=== PATIENT | female | born 1995 | race Two or more races ===

== ENCOUNTER 2024-04-21 13:16 | Emergency (ER) | payer MEDICAID, SELFPAY ==
[2024-04-21 13:47] VITALS: BP 101/65; PULSE 64; RESP 18; TEMP 37.2; O2SAT 98
--- NOTE | 2024-04-21 13:58 | PD.EDRME ---
Rapid Medical Screening Exam RME Arrival date/time: 04/21/24 13:16 28-year-old female presents emergency department complaint of lower abdominal pain and headache Chief Complaint: Headache Time Seen by Provider: 04/21/24 13:23 Vital signs: Vital Signs Temperature 98.9 F 04/21/24 13:47 Pulse Rate 64 04/21/24 13:47 Respiratory Rate 18 04/21/24 13:47 Blood Pressure 101/65 04/21/24 13:47 Pulse Oximetry (%) 98 04/21/24 13:47 Oxygen Delivery Method Room Air 04/21/24 13:47
[2024-04-21 14:12] LABS: Basophils % (Auto) 1 % (0-2.5); Eosinophils # (Auto) 0.3 Thou/mm3 (0.0-0.5); Eosinophils % (Auto) 5 % (0-10); Hematocrit 35.7 % (36.0-46.0); Hemoglobin 11.9 g/dL (12.0-16.0); Immature Granulocytes % (Auto) 0 % (0-0); Lymphocytes # (Auto) 2.1 Thou/mm3 (1.0-4.8); Lymphocytes % (Auto) 31 % (10-50); Mean Corpuscular HGB Conc 33.3 g/dl (31.0-37.0); Mean Corpuscular Hemoglobin 29.9 pg (25.0-35.0); Mean Corpuscular Volume 90 fL (80-100); Monocytes # (Auto) 0.7 Thou/mm3 (0.0-0.8); Monocytes % (Auto) 10 % (0-12); Neutrophils # (Auto) 3.6 Thou/mm3 (1.8-7.7); Neutrophils % (Auto) 54 % (37-80); Nucleated Red Blood Cell % 0 /100 WBC (0); Platelet Count 197 Thou/mm3 (140-440); RDW Standard Deviation 39.9 fL (36.4-46.3); Red Blood Count 3.98 Miln/mm3 (4.00-5.20); White Blood Count 6.6 Thou/mm3 (3.6-11.0)
[2024-04-21 14:35] LABS: Alanine Aminotransferase 13 U/L (10-49); Albumin, Serum 4.5 gm/dL (3.5-5.0); Albumin/Globulin Ratio 1.5 (1.2-2.2); Alkaline Phosphatase 68 U/L (46-116); Anion Gap 7 (7-16); Aspartate Amino Transferase 22 U/L (0-34); BUN/Creatinine Ratio 10 Ratio (12-20); Bilirubin,Total 0.7 mg/dL (0.3-1.2); Blood Urea Nitrogen 7 mg/dL (9-23); Calcium 9.6 mg/dL (8.3-10.6); Calcium (Corrected) 9.6 mg/dL (8.5-10.1); Carbon Dioxide 27.9 mMol/L (20.0-31.0); Chloride 103 mMol/L (98-107); Creatinine (Component) 0.7 mg/dL (0.6-1.3); Globulin 3.1 gm/dL (2.3-3.5); Glucose 81 mg/dL (74-106); Lipase 31 U/L (12-53); Osmolality,Calculated 272 (275-295); Potassium 3.6 mMol/L (3.4-5.1); Sodium 138 mMol/L (136-145); Total Protein 7.6 gm/dL (5.7-8.2); eGFR > 60 See Note
[2024-04-21 16:05] LABS: Collection Type, Urine Clean Catch
[2024-04-21 16:13] LABS: HCG Qualitative,Urine Negative
[2024-04-21 16:14] LABS: Bacteria,Urine Rare; Bilirubin,Urine Negative (Negative); Blood,Urine Negative (Negative); Color,Urine Lt-Yellow (Lt Yel-Yel); Culture Indicated,Urine Contaminated; Glucose, Urine Negative (Negative); Ketones,Urine Negative (Negative); Leukocyte Esterase,Urine Positive (Negative); Nitrite,Urine Negative (Negative); Protein,Urine Negative (Neg - Trace); RBC,Urine 3 /hpf (0-3); Specific Gravity,Urine 1.007 (1.001-1.035); Squamous Epithelial Cell,Urine 29 /hpf (0-5); Urobilinogen,Urine Negative mg/dL (0.0-1.0); WBC,Urine 75 /hpf (0-5)
--- NOTE | 2024-04-21 16:20 | EDNOTE_ITS ---
ED General RME/HPI General Chief complaint: Headache Stated complaint: ORTIZ, right side abdominal pain Time Seen by Provider: 04/21/24 13:23 Arrival date/time: 04/21/24 13:16 CC: Headache and abdominal pain HPI ongoing intermittent for the last month does not take any jfdk-tob-mhinnak medications that was referred from the [facility]. When asked if her head hurts in the back she said yes in the front yes, when asked about the chest she says there is no chest pain, but there is no back pain. During the interview the more I asked the more the patient said yes to her pain. The patient is stable vital signs is afebrile nontoxic-appearing and not in any acute distress. Patient did admitted to blurred vision seeing spots however the patient is tracking normally and responding to us with appropriate fashion. RME / HPI RME / HPI narrative: 04/21/24 13:16 28-year-old female presents emergency department complaint of lower abdominal pain and headache Related Data Allergies Allergy/AdvReac Type Severity Reaction Status Date / Time No Known Allergies Allergy Verified 04/21/24 13:22 Course Quality Measures none Orders Category Date Time Status CBC Stat Lab 04/21/24 13:58 Completed Comprehensive Metabolic Panel Stat Lab 04/21/24 13:58 Completed Drug Screen,Urine Stat Lab 04/21/24 15:47 Completed HCG Qualitative,Urine Stat Lab 04/21/24 15:47 Completed Lipase Stat Lab 04/21/24 13:58 Completed UA, C/S IF [Urinalysis, C/S if Indicated] Stat Lab 04/21/24 15:47 Completed Acetaminophen Tab [Tylenol Tab] Med 04/21/24 16:40 Discontinued 650 mg PO X1 ONE Vital Signs Vital signs: Vital Signs Temperature 98.9 F 04/21/24 13:47 Pulse Rate 64 04/21/24 13:47 Respiratory Rate 18 04/21/24 13:47 Blood Pressure 101/65 04/21/24 13:47 Pulse Oximetry (%) 98 04/21/24 13:47 Oxygen Delivery Method Room Air 04/21/24 13:47 [facility] Patient data External records reviewed:: [facility] previous records Clinical information provided by:: patient Social determinants that could affect healthcare access:: none Patient has the following chronic illnesses:: None How is presenting disease/condition affected by chronic disease/condition?: u neffected by Evaluation data The following diagnostics were reviewed and interpreted by me:: lab results Lab and/or radiology exams considered but not ordered:: CBC shows no acute leukocytosis anemia thrombocytopenia CMP shows no acute electrolyte imbalances renal impairment transaminitis or T. bili elevation Urine is negative UDS is negative. Interpretation Summary: Body aches presumable URI. Medications Medications considered but not ordered:: None Medication administrations:: Medication Administration History Discontinued Medications Acetaminophen (Acetaminophen 325 Mg Tablet) 650 mg PO X1 ONE Stop: 04/21/24 16:41 Last Admin: 04/21/24 16:54 Dose: 650 mg Documented By: ZULEIKA None Consultations Consultation(s) initiated? (list below): No Diagnosis Differential Diagnosis ED Complaint MDM: Body aches electrolyte imbalance UTI Most likely diagnosis given after review of the tests above:: Body aches Admission Indicated Admission indicated?: not indicated Explain why admission is indicated or not indicated:: Stable for discharge Admission Request Was there a request for admission?: No Disposition Plan Disposition Plan: Discharge Discharge Attestation Discharge Attestation: The patient and all family members were given an opportunity to ask questions and understood the discharge instructions. Discharge instructions specifically effects, indications for sooner follow up or return to the emergency department, and the expected course of current diagnosis. Patient condition: Stable Medical Decision Making Differential Diagnosis Differential Diagnosis: Body aches electrolyte imbalance UTI Lab Data 04/21/24 13:58 04/21/24 13:58 Labs: Lab Results 04/21/24 04/21/24 Range/Units 13:58 15:47 WBC 6.6 (3.6-11.0) Thou/mm3 RBC 3.98 L (4.00-5.20) Miln/mm3 Hgb 11.9 L (12.0-16.0) g/dL Hct 35.7 L (36.0-46.0) % MCV 90 (80-100) fL MCH 29.9 (25.0-35.0) pg MCHC 33.3 (31.0-37.0) g/dl RDW Std Deviation 39.9 (36.4-46.3) fL Plt Count 197 (140-440) Thou/mm3 Neut % (Auto) 54 (37-80) % Lymph % (Auto) 31 (10-50) % [place] % (Auto) 10 (0-12) % Eos % (Auto) 5 (0-10) % Baso % (Auto) 1 (0-2.5) % Neut # (Auto) 3.6 (1.8-7.7) Thou/mm3 Lymph # (Auto) 2.1 (1.0-4.8) Thou/mm3 [place] # (Auto) 0.7 (0.0-0.8) Thou/mm3 Eos # (Auto) 0.3 (0.0-0.5) Thou/mm3 Baso # (Auto) 0.0 (0.0-0.2) Thou/mm3 Immature Gran # (Auto) 0.00 (0.00-0.00) Thou/mm3 Absolute Nucleated RBC 0.00 (0.00-0.00) Thou/mm3 Immature Gran % 0 (0-0) % Nucleated RBC % 0 (0) /100 WBC Sodium 138 (136-145) mMol/L Potassium 3.6 (3.4-5.1) mMol/L Chloride 103 (98-107) mMol/L Carbon Dioxide 27.9 (20.0-31.0) mMol/L Anion Gap 7 (7-16) BUN 7 L (9-23) mg/dL Creatinine 0.7 (0.6-1.3) mg/dL Estim Creat Clear Calc Not Performed. eGFR > 60 (60 - ) See Note BUN/Creatinine Ratio 10 L (12-20) Ratio Glucose 81 (74-106) mg/dL Calculated Osmolality 272 L (275-295) Calcium 9.6 (8.3-10.6) mg/dL Corrected Calcium 9.6 (8.5-10.1) mg/dL Total Bilirubin 0.7 (0.3-1.2) mg/dL AST 22 (0-34) U/L ALT 13 (10-49) U/L Alkaline Phosphatase 68 (46-116) U/L Total Protein 7.6 (5.7-8.2) gm/dL Albumin 4.5 (3.5-5.0) gm/dL Globulin 3.1 (2.3-3.5) gm/dL Albumin/Globulin Ratio 1.5 (1.2-2.2) Lipase 31 (12-53) U/L Ur Collection Type Clean Catch Urine Color Lt-Yellow (Lt Yel-Yel) Urine Clarity Hazy (Clear/Hazy) Urine pH 6.0 (5.0-7.0) Ur Specific [place] 1.007 (1.001-1.035) Urine Protein Negative (Neg - Trace) Urine Glucose (UA) Negative (Negative) Urine Ketones Negative (Negative) Urine Blood Negative (Negative) Urine Nitrite Negative (Negative) Urine Bilirubin Negative (Negative) Urine Urobilinogen (Auto) Negative (0.0-1.0) mg/dL Ur Leukocyte Esterase Positive (Negative) Urine RBC 3 (0-3) /hpf Urine WBC 75 H (0-5) /hpf Ur Squamous Epith Cells 29 H (0-5) /hpf Urine Bacteria Rare (None) Ur Culture Indicated? Contaminated Urine HCG, Qual Negative Urine Opiates Screen Negative (Negative) Urine Fentanyl Screen Negative (Negative) Ur Barbiturates Screen Negative (Negative) U Amphetamin/Meth Scrn Negative (Negative) U Benzodiazepines Scrn Negative (Negative) U Cocaine Metab Screen Negative (Negative) U Marijuana (THC) Screen Negative (Negative) Discharge Plan Plan Patient Disposition: HOME (Self Care) Patient condition on transfer: Stable Prescriptions/Referrals Referrals: Jacob Rabago MD [Primary Care Provider] - In 1 week Problem List Clinical Impression: Headache, Body aches Patient/Caregiver Discharge Instructions Education Materials: Self-Care for Headaches Print Language: Faroese Stand Alone Forms: Na Award Info., Work/School Release, Patient Portal Info Letter PER/NEELAM Supervising Physician PA/NEELAM Supervising Physician: Osito Hull ENP
[2024-04-21 16:23] VITALS: BP 98/64; PULSE 60; RESP 18; O2SAT 100
[2024-04-21 16:29] LABS: Clarity,Urine Hazy (Clear/Hazy)
[2024-04-21 16:39] VITALS: TEMP 36.7
[2024-04-21 16:48] LABS: Amphetamine/Methamp Scrn,U Negative (Negative); Barbiturate Screen,Urine Negative (Negative); Benzodiazepines Screen,Urine Negative (Negative); Benzoylecgonine Screen, Ur Negative (Negative); Fentanyl Screen,Urine Negative (Negative); Opiate Screen,Urine Negative (Negative); THC Screen,Urine Negative (Negative)
[2024-04-21] MEDS: ACETAMINOPHEN 325 MG TABLET 650 MG PO (16:54)
== END 2024-04-21 17:35 | disposition home or self-care (01) ==
PROVIDERS: Nurse Practitioner Primary Care; Registered Nurse General Practice; Emergency Provider Emergency Medicine; PCP Family Medicine
DX: R51.9 Headache, unspecified (principal)
CPT/HCPCS: 36415; 80053; 80307; 81001; 81025; 83690; 85025; 99283; A9270

== ENCOUNTER 2025-04-19 21:53 | Emergency (ER) | payer MEDICAID, SELFPAY ==
[2025-04-19 23:03] VITALS: BP 97/63; PULSE 79; RESP 18; TEMP 36.8; O2SAT 100
--- NOTE | 2025-04-19 23:09 | XR_ITS ---
Study: Abdomen pelvis CT. INDICATION: Right-sided abdominal pain for 1 day. Negative hCG. TECHNIQUE: 3 mm slice thickness without contrast. 3 mm sagittal and coronal reformats. Radiation dose 2 1 6 mGy centimeters with dose reduction technique 1433 images at 0054 hours 20 April 2025. COMPARISON: None. FINDINGS: The patient was imaged from the base of the heart to the subtrochanteric regions. The heart, lung bases and pleural spaces are normal. Breast parenchyma is remarkably dense bilaterally. The gallbladder, kidneys, ureters and urinary bladder are free from calculi. There is no hydronephrosis, ascites or free abdominal air. Parenchyma of the liver, pancreas, spleen, kidneys, adrenal glands and periaortic lymph node region is normal within the limitations of a noncontrasted study. The stomach, duodenum, small bowel, appendix and colon are normal. There is no excess stool. Minimal fluid is noted in the urinary bladder. No internal mass is identifiable. The uterus is anteverted and enlarged to a maximum transaxial dimension of 9.1 cm laterally by 7.5 cm AP. A normal right ovary is identified. The left ovary is not seen. There is no visible lymphadenopathy at the pelvic sidewalls or in the internal iliac system of lymph nodes. Spinal alignment is normal. There is no sclerotic or lytic lesion. No vertebral fracture is observed. There is narrowing of the L5-S1 disc. The spinal canal is spacious. IMPRESSION: 1. Nonspecific enlargement of the uterus. Consider ultrasound examination and follow-up. 2. Very dense breast parenchyma.
--- NOTE | 2025-04-19 23:10 | PD.EDRME ---
Rapid Medical Screening Exam E Arrival date/time: 04/19/25 21:53 This is a case of 29-year-old female with no medical history came into the emergency room due to right-sided abdominal pain for 2 days with nausea vomiting persistence of the symptoms this patient decided to sought consult here in the emergency room Chief Complaint: Abdominal Pain Time Seen by Provider: 04/19/25 23:06 Vital signs: Vital Signs Temperature 98.3 F 04/19/25 23:03 Pulse Rate 79 04/19/25 23:03 Respiratory Rate 18 04/19/25 23:03 Blood Pressure 97/63 04/19/25 23:03 Pulse Oximetry (%) 100 04/19/25 23:03 Oxygen Delivery Method Room Air 04/19/25 23:03 Exam: Moderate tenderness on the right upper and right lower quadrant no guarding no rebound no rigidity Clinical Impression: Abdominal pain
[2025-04-19 23:41] LABS: Basophils # (Auto) 0.0 Thou/mm3 (0.0-0.2); Basophils % (Auto) 0 % (0-2.5); Eosinophils # (Auto) 0.3 Thou/mm3 (0.0-0.5); Eosinophils % (Auto) 6 % (0-10); Hematocrit 34.5 % (36.0-46.0); Hemoglobin 10.8 g/dL (12.0-16.0); Immature Granulocytes Auto 0.01 Thou/mm3 (0.00-0.00); Lymphocytes # (Auto) 1.1 Thou/mm3 (1.0-4.8); Lymphocytes % (Auto) 21 % (10-50); Mean Corpuscular HGB Conc 31.3 g/dl (31.0-37.0); Mean Corpuscular Hemoglobin 25.5 pg (25.0-35.0); Mean Corpuscular Volume 82 fL (80-100); Monocytes # (Auto) 0.5 Thou/mm3 (0.0-0.8); Monocytes % (Auto) 9 % (0-12); Neutrophils # (Auto) 3.4 Thou/mm3 (1.8-7.7); Neutrophils % (Auto) 65 % (37-80); Nucleated Red Blood Cell # 0.00 Thou/mm3 (0.00-0.00); Nucleated Red Blood Cell % 0 /100 WBC (0); Platelet Count 367 Thou/mm3 (140-440); RDW Standard Deviation 47.7 fL (36.4-46.3); Red Blood Count 4.23 Miln/mm3 (4.00-5.20); White Blood Count 5.2 Thou/mm3 (3.6-11.0)
[2025-04-20 00:01] LABS: Alanine Aminotransferase 30 U/L (10-49); Albumin, Serum 4.3 gm/dL (3.5-5.0); Albumin/Globulin Ratio 1.2 (1.2-2.2); Alkaline Phosphatase 134 U/L (46-116); Anion Gap 11 (7-16); Aspartate Amino Transferase 25 U/L (0-34); BUN/Creatinine Ratio 13 Ratio (12-20); Bilirubin,Total 0.5 mg/dL (0.3-1.2); Blood Urea Nitrogen 8 mg/dL (9-23); Calcium 9.3 mg/dL (8.3-10.6); Calcium (Corrected) 9.3 mg/dL (8.5-10.1); Carbon Dioxide 25.8 mMol/L (20.0-31.0); Chloride 104 mMol/L (98-107); Creatinine (Component) 0.6 mg/dL (0.6-1.3); Globulin 3.6 gm/dL (2.3-3.5); Glucose 90 mg/dL (74-106); Lipase 33 U/L (12-53); Osmolality,Calculated 279 (275-295); Potassium 3.9 mMol/L (3.4-5.1); Sodium 141 mMol/L (136-145); Total Protein 7.9 gm/dL (5.7-8.2); eGFR > 60 See Note
[2025-04-20 00:34] LABS: Collection Type, Urine Clean Catch
[2025-04-20 00:37] LABS: HCG Qualitative,Urine Negative
[2025-04-20 00:39] LABS: Amorphous Crystals,Urine Present (Absent); Bacteria,Urine Rare; RBC,Urine 1 /hpf (0-3); Squamous Epithelial Cell,Urine 1 /hpf (0-5); WBC,Urine 5 /hpf (0-5)
[2025-04-20 00:50] LABS: Bilirubin,Urine Negative (Negative); Blood,Urine 2+ (Negative); Clarity,Urine Clear (Clear/Hazy); Color,Urine Colorless (Lt Yel-Yel); Glucose, Urine Negative (Negative); Ketones,Urine Negative (Negative); Leukocyte Esterase,Urine Positive (Negative); Nitrite,Urine Negative (Negative); PH,Urine 6.0 (5.0-7.0); Protein,Urine Negative (Neg - Trace); Specific Gravity,Urine 1.004 (1.001-1.035); Urobilinogen,Urine Negative mg/dL (0.0-1.0)
--- NOTE | 2025-04-20 01:44 | PRELIM_ITS ---
CT scan of the abdomen and pelvis without intravenous contrast (axial sections with sagittal and coronal reformats) April 20, 2025 0054 hours Clinical History: Abdominal pain Comparison: None available at the time of this report. Findings: The lung bases are clear. The liver, gallbladder, pancreas, spleen, kidneys and adrenals are unremarkable on this noncontrast study. No evidence of bowel obstruction. The appendix is within normal limits. There is no mesenteric or retroperitoneal adenopathy. The urinary bladder is unremarkable. There is no free fluid or free air. The osseous structures are unremarkable. Fecal loading. Enlarged heterogenous uterus with thickened heterogenous endometrium. Impression: Enlarged heterogenous uterus with thickened heterogenous endometrium. Correlation with pelvic ultrasound is recommended. Fecal loading. Report Electronically Signed By: Segun Reeves 04/20/2025 1:43:56 AM [EST]
[2025-04-20 02:20] VITALS: BP 106/68; PULSE 61; RESP 24; TEMP 36.6; O2SAT 98
--- NOTE | 2025-04-20 02:20 | EDNOTE_ITS ---
ED Abdominal Pain RME/HPI General Chief Complaint: Abdominal Pain Stated complaint: RIGHT SIDE ABD PAIN Time seen by provider: 04/19/25 23:06 Arrival date/time: 04/19/25 21:53 RME / HPI RME / HPI narrative: 04/19/25 21:53 This is a case of 29-year-old female with no medical history came into the emergency room due to right-sided abdominal pain for 2 days with nausea vomiting persistence of the symptoms this patient decided to sought consult here in the emergency room Dr. eMek?s Main ED Evaluation: 29yo female with no significant past medical history presents to the ED for a chief complaint of RUQ pain x yesterday. No radiation or migration. Patient denies any N/V, fever, chills, back pain, or any other associated symptoms. Patient has experienced similar symptoms in the past. NKA. Related Data Previous Rx's ?Medication ?Instructions ?Recorded dicyclomine 20 mg tablet 20 mg PO QID PRN abdominal p ain 04/20/25 #20 tabs Allergies Allergy/AdvReac Type Severity Reaction Status Date / Time No Known Allergies Allergy Verified 04/19/25 21:54 Review of Systems Review of Systems Systems Reviewed: All systems reviewed, normal except as documented Past Medical History Past Medical History CARDIAC: Negative Congestive Heart Failure RESPIRATORY: Negative Chronic Obstructive Pulmonary Disease (COPD) GENITOURINARY: Negative Renal Disease ENDOCRINE: Negative Diabetes Mellitus Type 1 or Diabetes Mellitus Type 2 Social History SMOKING STATUS: Never smoker ED Exam Narrative Physical exam: Generally patient is alert and in no obvious distress, oropharynx use poor dentition, heart regular rate and rhythm, lungs clear to auscultation equal bilaterally, abdomen soft bowel sounds present nondistended mild right upper quadrant abdominal tenderness without rebound. No adnexal tenderness. Extremities show no edema. Neurologic exam shows a Chris Coma Scale of 15 without focal motor deficits Course Quality Measures none Orders Category Date Time Status CT abdomen pelvis wo con Stat Exams 04/19/25 23:09 Taken CBC Stat Lab 04/19/25 23:18 Completed Comprehensive Metabolic Panel Stat Lab 04/19/25 23:18 Completed HCG Qualitative,Urine Stat Lab 04/19/25 00:27 Completed Lipase Stat Lab 04/19/25 23:18 Completed Urinalysis Stat Lab 04/19/25 00:27 Completed Vital Signs Vital signs: Vital Signs Temperature 98.3 F 04/19/25 23:03 Pulse Rate 79 04/19/25 23:03 Respiratory Rate 18 04/19/25 23:03 Blood Pressure 97/63 04/19/25 23:03 Pulse Oximetry (%) 100 04/19/25 23:03 Oxygen Delivery Method Room Air 04/19/25 23:03 Abdominal Pain MDM MDM Narrative MDM Narrative:: Scribe Attestation: 04/20/25 - Arlene Gutierrez, tony scribing for and in the presence of Dr. Meek. I interpreted all labs. There is no fever or leukocytosis. Slightly elevated alkaline phosphatase level. is negative. Urinalysis shows no evidence of infection. CT scan done of the abdomen and pelvis without contrast ordered prior to my evaluation showed no evidence of acute disease other than enlarged uterus which the patient was made aware of. She will follow-up with [facility]. There is evidence for fecal overload. No evidence for appendicitis. Gallbladder was normal. Patient is constipated. Patient needs to take djny-dzb-eiuvwif MiraLAX. Bentyl as prescribed for pain. Follow-up with her doctor. Keep well-hydrated. Return to ER as needed or if condition worsens. Patient data External records reviewed:: [facility] previous records (Per chart review, patient was seen here on 04/21/24 for body aches.) Clinical information provided by:: patient Social determinants that could affect healthcare access:: none Patient has the following chronic illnesses:: none How is presenting disease/condition affected by chronic disease/condition?: no chronic disease Evaluation data The following diagnostics were reviewed and interpreted by me:: lab results and radiology exam(s) Lab and/or radiology exams considered but not ordered:: none Interpretation Summary: Telerad Preliminary Report Draft Patient: DESIREE LEE. Record#: [id number] Birthdate: 1995 Age/Sex: 29 / F Location: [facility] Attending Dr: Ordering Physician: Date of Service: Procedure(s): Accession Number(s): cc: ~ CT scan of the abdomen and pelvis without intravenous contrast (axial sections with sagittal and coronal reformats) April 20, 2025 0054 hours Clinical History: Abdominal pain Comparison: None available at the time of this report. Findings: The lung bases are clear. The liver, gallbladder, pancreas, spleen, kidneys and adrenals are unremarkable on this noncontrast study. No evidence of bowel obstruction. The appendix is within normal limits. There is no mesenteric or retroperitoneal adenopathy. The urinary bladder is unremarkable. There is no free fluid or free air. The osseous structures are unremarkable. Fecal loading. Enlarged heterogenous uterus with thickened heterogenous endometrium. Impression: Enlarged heterogenous uterus with thickened heterogenous endometrium. Correlation with pelvic ultrasound is recommended. Fecal loading. Report Electronically Signed By: Segun Reeves 04/20/2025 1:43:56 AM [EST] Medications / Prescriptions Medications or Prescriptions considered but not ordered:: none Medication administrations:: none Consultations Consultation(s) initiated? (list below): No Diagnosis Differential diagnosis abdominal pain: other (See MDM) Most likely diagnosis given after review of the tests above:: see clinical impression below Admission Indicated Admission indicated?: not indicated Admission Request Was there a request for admission?: No Disposition Plan Disposition Plan: Discharge Discharge Attestation Discharge Attestation: The patient and all family members were given an opportunity to ask questions and understood the discharge instructions. Discharge instructions specifically effects, indications for sooner follow up or return to the emergency department, and the expected course of current diagnosis. Patient condition: Stable Discharge Plan Plan Patient Disposition: HOME (Self Care) Prescriptions/Referrals Prescriptions/Med Rec: New dicyclomine 20 mg tablet 20 mg PO QID PRN (Reason: abdominal pain) Qty: 20 0RF Referrals: No Primary/Family,Physician [Primary Care Provider] - In 1 week Problem List Clinical Impression: Abdominal pain, Constipation Patient/Caregiver Discharge Instructions Education Materials: Abdominal Pain, ED Constipation (Adult) Additional Instructions: Medication as prescribed. Use wmen-iud-azecrus MiraLAX for constipation. Keep well-hydrated. Follow-up with your doctor as needed for further treatment and evaluation. Print Language: Greek Stand Alone Forms: Na Award Info., Patient Portal Info Letter
== END 2025-04-20 02:44 | disposition home or self-care (01) ==
PROVIDERS: Nurse Practitioner Family; Emergency Provider Emergency Medicine
DX: K59.00 Constipation, unspecified (principal); N85.2 Hypertrophy of uterus
CPT/HCPCS: 36415; 74176; 80053; 81001; 81025; 83690; 85025; 99283